=== PATIENT | male | born 1940 | race Caucasian/White ===

== ENCOUNTER 2018-09-24 11:18 | Inpatient (IN) | payer MEDICARE, BC ==
[~2018-09-24] VITALS: Ht 172.8 cm; Wt 80.5 kg
[~2018-09-24 11:18] MED LIST: ASPIRIN 81M81 MG/TA2 PO; DILANTIN 100MG100 MG PO; EPA FISH OIL1 SGL PO; FISH OIL 1000MG1 CAP PO; GLUCOPHAGE1000 MG PO; GLUCOTROL 5M5 MG/TAB PO; GLUCOTROL10 MG PO; LANOXIN 0.25M0.25 MG PO; LOPID 600M600 MG/TAB PO; LOPRESSOR 550 MG/TAB PO; MULTIPLE VITAMI1 CAP PO; ZOCOR 20MG20 MG PO
[2018-10-27] VITALS (11 sets, daily range): BP systolic 112–151; BP diastolic 46–92; PULSE 69–100; TEMP 97.7–98.8
--- NOTE | 2018-10-27 12:55 | NUR ---
PATIENT BACK IN ROOM 328 POST OP. A&O. VSS. DENIES PAIN IN LLE. LTK DRESSING IS CD&I WITH AQUACEL AND TECHNOL BRACE INPLACE. ICE PACK TO LLE. TEDS & SCD'S TO BLE. POSITIVE PEDAL PULSES TO BLE. BAZAN TO DEPENDENT DRAINAGE WITH SMALL AMOUNTS OF CLEAR YELLOW URINE NOTED. IV FLUIDS INFUSING VIA PUMP. NO C/O N/V. LIQUIDS AT BEDSIDE. BS IN PACU WAS 196. HEAD TO TOE ASSESSMENT WNL. ORIENTED TO ROOM. FAMILY NOW AT BEDSIDE. NO OTHER NEEDS. CALL LIGHT IN REACH.
--- NOTE | 2018-10-27 15:34 | NUR ---
CARLITOS nicole met with the patient, patient's sister (Arianna), and patient's [id number] (Oumar) to discuss discharge plan. The patient lives alone near [place]. The patient does not have any assistive devices and reports independence with ADLs prior to surgery. The patient's PCP is Dr. Hernan Napoles and he receives his medications from [facility] The patient reports no difficulties obtaining his medications. The patient and patient's sister believe he has a DPOA-HC completed at home and on that form, he has designated his sister, Arianna. CARLITOS nicole then discussed the physician's recommendation of post-acute rehab. The patient has already been in contact with [facility] and would like to go there for a skilled stay. CARLITOS Nicole presented and explained the patient-choice form. Patient verbalized understanding and signed the form. CARLITOS nicole provided a copy. CARLITOS nicole then contacted My, at [facility], who confirmed contact with the patient. CARLITOS nicole faxed the referral to My at [facility]. Awaiting their screening. CARLITOS to continue to follow. My at [facility] F#[phone]
--- NOTE | 2018-10-27 20:05 | NUR ---
Assessment completed. Patient is A&O x 4. VSS, on room air. Pain controlled with current oral regimen. Ronald wrap dressing to LLE with an Aquacell dressing to left knee that is CDI. Pedal pulses intact. LLE david hose/BLE scds on while in bed. Dial catheter to DD with tea-colored urine draining. Tolerating diet with no c/o nausea. IVF infusing with intermittent antibiotic. Patient ambulated in the hallway with staff and walker approximately 50 feet with a steady gait. Technol brace removed from LLE after ambulating and LLE elevated on a pillow with a fresh bag of ice applied to knee. Will apply technol brace again to LLE when patient is ready for bed. Denies any concerns or needs at this time. Bed is in a low position with call light in reach.
--- NOTE | 2018-10-27 22:33 | NUR ---
Patient is resting in bed with technol brace maintained to LLE. Reports the pain to the knee has subsided and now he feels pain in his left upper thigh and hip region. Elevated LLE on multiple pillows for elevation. Discussed other pain control options as it is to soon for Oxycodone again. Patient denied needing any IV pain medication at this time, voices wanting to wait and see how the elevation helps first.
--- NOTE | 2018-10-27 23:18 | NUR ---
Patient reported that the elevation of the LLE did not help reduce his pain level and is now requesting something additional for pain, prn IV Morphine given at this time as it was to early for oral pain medication.
--- NOTE | 2018-10-28 00:45 | NUR ---
Patient is resting in bed reports his pain level is better than earlier and he has been able to get some sleep. Oxycodone taken at this time to stay ahead of the pain. Denies any other concerns or needs, call light remains within reach.
[2018-10-28 04:00] VITALS: BP 132/56; PULSE 88; TEMP 98
--- NOTE | 2018-10-28 06:04 | NUR ---
Patient has rested intermittently through the night. VSS, remains on room air. Oxycodone has been given for pain control approximately every 4 hours along with scheduled Tylenol and two doses of IV Morphine for breakthrough pain. Patient reports some knee pain to the top of the knee and the majority of pain experienced through the upper left thigh. Technol brace removed this morning. Ronald wrap and aquacell dressing to knee has remained CDI. A fresh ice pack applied this morning to the knee. Patient has been repositioning himself independently in bed, reminded not to put the pillow directly under the knee. Denies any concerns or needs at this time. Bed remains in a low position with call light in reach.
[2018-10-28 06:11] LABS: HEMOGLOBIN 10.9 g/dl (13.5-18.0)
[2018-10-28 06:17] LABS: HEMATOCRIT 31.1 % (42.0-52.0)
--- NOTE | 2018-10-28 07:24 | NUR ---
REPORT FROM OMER VALDES.
[2018-10-28 07:40] VITALS: BP 131/64; PULSE 90; TEMP 98.1
--- NOTE | 2018-10-28 10:24 | NUR ---
PT OUT TO [facility] WITH THERAPY. AMBULATING WELL WITH STEADY GAIT. DR LUKE IN TO SEE PT THIS AM. PLAN ON DISCHARGE LAATER THIS WEEK.
[2018-10-28 12:32] VITALS: BP 104/41; PULSE 84; TEMP 97.8
--- NOTE | 2018-10-28 12:35 | NUR ---
BAZAN CATHETER DISCONTINUED PER ORDERS. TIP INTACT, PT TOELRATED WELL.
--- NOTE | 2018-10-28 15:23 | NUR ---
SW student faxed updates to My at [facility].
[2018-10-28 16:39] VITALS: BP 136/55; PULSE 87; TEMP 98
[2018-10-28 19:48] VITALS: BP 145/54; PULSE 91; TEMP 98.1
--- NOTE | 2018-10-28 21:00 | NUR ---
ASSESSMENT COMPLETE. A&O X3. VS STABLE. REQUESTING PAIN MEDICATIONS AT THIS TIME. NORCO [address] ORDER-WILL MONITOR EFFECTIVENESS. PLAN OF CARE DISCUSSED FOR THIS SHIFT. DENIES QUESTIONS OR CONCERNS. AMBULATED IN HALLWAY X1 SO FAR THIS SHIFT. EVANGELINA BANDAGE TO LLE WITH AQUACELL DRESSING. BED IN LOW POSITION-CALL LIGHT WITHIN REACH. ENCOURAGED TO CALL FOR QUESTIONS OR CONCERNS. VERBALIZES UNDERSTANDING. WILL MONITOR.
[2018-10-28 23:26] VITALS: BP 140/57; PULSE 91; TEMP 98.2
[2018-10-29] VITALS (7 sets, daily range): BP systolic 114–134; BP diastolic 51–58; PULSE 77–99; TEMP 98.2–98.7
--- NOTE | 2018-10-29 06:00 | NUR ---
VS STABLE. MEDICATED THROUGHOUT NIGHT EVERY THREE HOURS FOR PAIN. TECHNOL BRACE REMOVED THIS AM AND ICE APPLIED. RATING PAIN 6/10-ABRIL GIVEN PER DR ORDER. DRESSING EVANGELINA BANDAGE WITH AQUACELL-CLEAN DRY AND INTACT. BED IN LOW POSITION. CALL LIGHT WITH IN REACH. WILL MONITOR.
[2018-10-29 06:10] LABS: HEMOGLOBIN 10.7 g/dl (13.5-18.0)
[2018-10-29 06:12] LABS: HEMATOCRIT 30.2 % (42.0-52.0)
[2018-10-29 06:21] LABS: CALCIUM 9.8 mg/dL (8.4-10.2); CREATININE, serum 0.56 mg/dL (0.66-1.25); POTASSIUM 3.6 mmol/L (3.4-5.0)
--- NOTE | 2018-10-29 07:00 | NUR ---
appears to be dozing, awakens easily, bedside shift report received from Lacie Solitario
--- NOTE | 2018-10-29 07:45 | NUR ---
has had breakfast and tolerated well, full assessment completed, see interventions for further info
--- NOTE | 2018-10-29 08:53 | NUR ---
Initial visit; [employer] introduced herself and inquired about patient's support system. Dariel stated that he does have a family who supports him. E[employer] wished him well and God's blessings. Patient receptive to [employer]'s blessing.
--- NOTE | 2018-10-29 09:00 | NUR ---
ambulating in [place] with physical therapy with steady gait
--- NOTE | 2018-10-29 09:50 | NUR ---
resting in chair, c/o pain 5/10 and medicated with hydrocodone 7.5mg 2 tabs
--- NOTE | 2018-10-29 13:00 | NUR ---
Dr Brito in to see patient
--- NOTE | 2018-10-29 13:00 | NUR ---
occupational therapy in to work with patient and assist with taking a shower
--- NOTE | 2018-10-29 13:29 | NUR ---
My, with [facility], contacted to CARLITOS chaudhry for an update. My gave CARLITOS student Dr. Hernan Napoles's P# for doc to doc call and the direct nurses line for nurse's call. CARLITOS chaudhry informed patient's nurse, Naina. CARLITOS chaudhry confirmed with My a discharge of tomorrow morning, 10/30. CARLITOS chaudhry faxed updates to My.
--- NOTE | 2018-10-29 14:13 | NUR ---
ambulating in [place] with physical therapy
--- NOTE | 2018-10-29 15:45 | NUR ---
CARLITOS chaudhry met with the patient to confirm the discharge plan. The patient reports that the earliest his sister can arrive to transport the patient to [facility] is 1300. CARLITOS chaudhry called My at [facility] to confirm this time. My confirmed that 1300 discharge is fine. CARLITOS chaudhry updated the patient. The patient is to discharge tomorrow, 10/30, at 1300 for a skilled stay at [facility]. Patient to be transported via private car by sisterArianna.
--- NOTE | 2018-10-29 16:00 | NUR ---
informed by social services assistant patient requesting something for pain, entered room and he appears to be sleeping, did not arouse when entered room, resting with eyes closed, no grimacing or moaning
--- NOTE | 2018-10-29 16:53 | NUR ---
awake and ordering supper, medicated wtih roxicodone 5mg per patient's request for pain 10/25
--- NOTE | 2018-10-29 17:50 | NUR ---
sitting up in bed eating supper, pain 2/10
--- NOTE | 2018-10-29 19:00 | NUR ---
appears to be sleeping, bedside shift report given to LUCIO Goldberg
--- NOTE | 2018-10-29 21:31 | NUR ---
Assessment completed. Patient is A&O x 4. VSS, on room air. Pain controlled at this time with alternating Shannon and Michelle. Airstrip to left knee is CDI, some minimal bruising noted around knee. Pedal pulses intact. BLE david hose/scds on. Denies any nausea. Voiding with no difficulities. INT to left hand. Ambulating with standby assist x 1 with walker and gait belt, gait steady. Ambulated approximately 75 feet in the hallway this evening. Technol brace applied at this time. Blood sugar 265 this evening, insulin given per orders. Denies any concerns or needs, call light is within reach.
[2018-10-30 03:45] VITALS: BP 119/51; PULSE 85; TEMP 98.6
--- NOTE | 2018-10-30 06:07 | NUR ---
Patient has rested well through the night. VSS. Pain controlled with alternating Chapin and Michelle. Technol brace removed at this time. Airstrip to left knee remains CDI and a fresh ice pack applied to knee this morning. Patient reminded to not put a pillow directly under knee. Denies any concerns or needs at this time, call light remains within reach.
[2018-10-30] MEDS ORDERED: ASPI325T6 PO (06:26)
[2018-10-30] MEDS ORDERED: NORCO 325 MG-7.1 TAB PO (06:27)
[2018-10-30] MEDS ORDERED: ROXICODONE 55 MG/TAB PO (06:28)
[2018-10-30] MEDS ORDERED: SENOKOT S 50 MG1 TAB PO (06:28)
[2018-10-30 06:35] LABS: HEMOGLOBIN 10.1 g/dl (13.5-18.0)
[2018-10-30 06:36] LABS: HEMATOCRIT 29.1 % (42.0-52.0)
--- NOTE | 2018-10-30 06:40 | NUR ---
bedside shift report received from LUCIO Goldberg
--- NOTE | 2018-10-30 07:50 | NUR ---
sitting up in bed and has had breakfast, full assessment completed, see interventions for further info, denies needs
[2018-10-30 08:35] VITALS: BP 128/59; PULSE 98; TEMP 99
--- NOTE | 2018-10-30 09:07 | NUR ---
physical therapy in to work with patient, ambulating in the [place]
--- NOTE | 2018-10-30 09:45 | NUR ---
Dr Reagan and care team in to see patient
[2018-10-30] MEDS ORDERED: JANUVIA 100MG100 MG PO (09:56)
--- NOTE | 2018-10-30 11:15 | NUR ---
SW met with patient to present IM and verbally discuss the contents. Patient was agreeable and signed the form. Copy provided and original placed on the chart. Patient is DC today, 10/30/18, to [facility] swing bed for longterm. His ride will be here at 1pm to transport. No other discharge needs identified.
[2018-10-30 11:36] VITALS: BP 128/59; PULSE 98; TEMP 99
[2018-10-30 11:37] VITALS: BP 119/56; PULSE 88; TEMP 97.8
--- NOTE | 2018-10-30 13:00 | NUR ---
family here for discharge, medicated with roxicodone 5mg po for c/os pain11/25, and in anticipation of discharge, discharged per WC
--- NOTE | 2018-10-30 13:45 | NUR ---
report called to Tammy at [facility]
== END 2018-10-30 13:00 | disposition swing bed (61) | DRG 470 ==
LOC: JCC 10-27 07:30
PROVIDERS: Physician Assistant; ADMIT Orthopaedic Surgery
PROC: 0SRD0J9 Replacement of Left Knee Joint with Synthetic Substitute, Cemented, Open Approach (ICD-10-PCS; principal; 2018-10-27 10:00)
DX: M17.12 Unilateral primary osteoarthritis, left knee (principal); E11.9 Type 2 diabetes mellitus without complications; Z79.84 Long term (current) use of oral hypoglycemic drugs; I10 Essential (primary) hypertension; I48.2 Chronic atrial fibrillation; N40.1 Benign prostatic hyperplasia with lower urinary tract symptoms; R33.8 Other retention of urine; E78.5 Hyperlipidemia, unspecified; G40.909 Epilepsy, unspecified, not intractable, without status epilepticus
CPT/HCPCS: 99222; 99231-AI; 99232-AI; A4314; A9284; C1713; C1776; J0690; J1100; J1815; J2250; J2270; J2405; J2704; J3010; J7030; J7120

== ENCOUNTER → 2018-10-15 | Outpatient (CLI) | payer MEDICARE, BC | LOC: COL.LAB 10:45 | DX: Z01.812 Encounter for preprocedural laboratory examination (principal) ==